=== PATIENT | female | born 2000 | race Caucasian/White ===

== ENCOUNTER 2023-04-30 17:03 | Emergency (ER) | payer BC, SELFPAY ==
[2023-04-30] VITALS (16 sets, daily range): BP systolic 100–119; BP diastolic 75–82; PULSE 96–120; RESP 12–30; TEMP 36.1–36.7; O2SAT 16–100
--- NOTE | ~2023-04-30 | CT_ITS ---
EXAMINATION: CT abdomen pelvis w con DATE: 04/30/2023 20:00 INDICATION: lower abdominal pain worse to RLQ TECHNIQUE: Computed tomography (CT) of the abdomen and pelvis was performed with 100 mL Omnipaque-350 intravenous contrast. Automated exposure control and iterative reconstruction technique were employe d. The dose-length product was 379.56 mGy-cm. COMPARISON: None. FINDINGS: Lower thorax: Unremarkable Liver: Normal. Biliary/Gallbladder: Gallbladder is normal. No bile duct dilation. Pancreas: No mass or duct dilation. Spleen: Normal. Adrenals:No mass. Kidneys: No suspicious mass, obstructing stone, or hydronephrosis. GI tract: Mild distal esophageal and gastric wall edema. No small or large bowel dilation. Normal jenifer endix. Mesentery/Peritoneum: No ascites, mass, or free air. Retroperitoneum: No mass. Pelvis: Pelvic organs are within normal limits. Soft Tissues: Soft tissues and body wall unremarkable. Bones: No acute osseous finding. IMPRESSION: Mild esophagitis/gastritis. Otherwise, no acute abdominopelvic process detected. Reviewed, dictated and finalized at location K.
--- NOTE | 2023-04-30 17:23 | ED.ABDPAIN ---
HPI - Abdominal Pain General Chief Complaint: Abdominal Pain Stated Complaint: LOWER ABD PAIN Time Seen by Provider: 04/30/23 17:16 Source: patient Mode of arrival: ambulatory Limitations: no limitations History of Present Illness HPI narrative: Patient is a 22-year-old female who denies any past medical history presents emergency department today for evaluation of pain to the lower abdomen right side. Patient states that this has been going on for few months now and occurs before her menstrual cycle starts. LMP was April 03. She states that the last few days the pain has been extremely unbearable and she cannot do anything else. she states with different movements or even laughing it can cause sharp pain. She states that she has been having very heavy and intense cycles. they are not regular. she is not on control. She states she is trying to get into a OBGYN because she has also had some hypoglycemia episodes she states. she has taken at home tests that were negative. denies trying to conceive at this time. denies fever, chills, bloody stool, abnormal vaginal discharge, concerns of STDs, pain with urination, hematuria, frequency/urgency, chest pain, shortness of breath, dizziness, or any other current symtpoms. Related Data Allergies Allergy/AdvReac Type Severity Reaction Status Date / Time No Known Allergies Allergy Verified 04/30/23 17:05 Review of Systems Review of Systems: CONSTITUTIONAL: Denies fever, chills, or sweats. EYES: Denies visual changes, redness, or discharge. ENT: Denies rhinorrhea, congestion, sore throat, or otalgia. CARDIOVASCULAR: Denies chest pain, palpitations, or edema. RESPIRATORY: Denies cough or dyspnea. GASTROINTESTINAL: +lower abdominal pain more on the right described as shooting/sharp, nausea, vomiting. denies diarrhea or constipation. GENITOURINARY: Denies dysuria or hematuria.+heavy abnormal periods and menstrual cramping. denies any other vaginal discharge. SKIN: Denies rash or itching. MUSCULOSKELETAL: generalized lower back pain bilaterally. Denies joint pain, or myalgia. NEUROLOGIC: Denies headache, numbness, or weakness. PSYCHIATRIC: Denies anxiety or depression. All systems reviewed & are unremarkable except as noted in HPI and below Exam Narrative: GENERAL: Well-appearing, well-nourished, and in no acute distress. HEAD: Normocephalic, atraumatic. EYES: PERRLA and EOMI. ENT: Nares clear, no rhinorrhea or epistaxis. Mucous membranes moist. NECK: Supple. CHEST: Clear to auscultation. No respiratory distress. HEART: Regular rate and rhythm. No murmur heard. Normal peripheral pulses. ABDOMEN: Soft, nondistended, normal active bowel sounds. TTP to RLQ with palpation. no rebound/guarding noted. no significant +McBurney's sign. EXTREMITIES: Normal range of motion. No edema. SKIN: Warm, dry, no rash. NEURO: No focal deficits. Alert and oriented x3. CN II-XII grossly intact PSYCH: Normal mood and affect. Course Vital Signs Vital signs: Vital Signs Temperature 98.1 F 04/30/23 17:06 Pulse Rate 116 H 04/30/23 17:06 Respiratory Rate 16 04/30/23 17:06 Blood Pressure 119/82 04/30/23 17:06 Pulse Oximetry 100 04/30/23 17:06 Oxygen Delivery Room Air 04/30/23 17:06 Temperature 96.9 F L 04/30/23 19:00 Pulse Rate 99 04/30/23 20:45 Respiratory Rate 16 04/30/23 20:45 Blood Pressure 100/75 04/30/23 19:30 Pulse Oximetry 16 L 04/30/23 19:00 Oxygen Delivery Room Air 04/30/23 17:06 MDM - Abdominal Pain MDM Narrative Medical decision making narrative: Patient presented to the ED with complaint of abdominal pain and extreme nausea. Vitals were within acceptable limits. Physical exam revealed TTP to RLQ. IV access was established by nursing staff. Patient was given zofran, famotidine, IV fluids, and ketorolac. CBC, BMP, lipase, LFTs, bilirubin and alk phos were obtained.Decision was made to obtain a CT-abdomen to evaluate for
[2023-04-30] MEDS: FAMOTIDINE 20 MG/2 ML VIAL IV PUSH (17:34)
[2023-04-30] MEDS: KETOROLAC 30 MG/ML VIAL (*BKC) IV PUSH (17:35)
[2023-04-30] MEDS: ONDANSETRON INJ 4 MG/2 ML VIAL IV PUSH (17:35)
[2023-04-30] MEDS: SODIUM CHLORIDE 0.9% IV 1,000 ML 999 ML IV CONT (17:37)
[2023-04-30 17:48] LABS: Basophils Percent Auto 0.5 % (0.2-1.2); Eosinophils Absolute Auto 0.2 K/mm3 (0-0.3); Hematocrit 43.4 % (37.0-47.0); Hemoglobin 14.1 g/dL (12.0-15.0); Immature Granulocyte Absolute 0.01 K/mm3 (0.00-0.031); Immature Granulocyte Percent A 0.1 % (0-0.5); Lymphocytes Absolute Auto 1.89 K/mm3 (0.9-3.2); Mean Corpuscular HGB Conc 32.5 g/dl (32-36); Mean Corpuscular Hemoglobin 28.5 pg (26-34); Mean Corpuscular Volume 87.7 fl (80-100); Mean Platelet Volume 9.4 fl (7.4-10.4); Monocytes Absolute Auto 0.6 K/mm3 (0.1-0.6); Monocytes Percent Auto 7.7 % (2.6-8.5); Neutrophils Absolute Auto 4.9 K/mm3 (1.3-6.7); Neutrophils Percent Auto 64.7 % (45.5-73.1); Platelet Count Result 365 k/mm3 (150-375); Red Blood Count 4.95 M/mm3 (4.2-5.4); Red Cell Distribution Width 12.4 % (11.5-14.5); White Blood Count 7.6 K/mm3 (4.5-10.0)
[2023-04-30 17:58] LABS: Alanine Aminotransferase 15 U/L (6-35); Albumin Level 4.4 g/dL (3.5-5.1); Alkaline Phosphatase 61 U/L (38-126); Anion Gap 8 mmol/L (8-16); Aspartate Amino Transferase 29 U/L (14-36); Bilirubin,Total 0.6 mg/dL (0.2-1.3); Blood Urea Nitrogen 10 mg/dL (7-17); Carbon Dioxide 25 mmol/L (22-30); Chloride 107 mmol/L (98-107); Estimated CRCL calculation 109 ml/min; Estimated Glomerular Filt Rate > 60; Glucose 95 mg/dL (65-110); Lipase 72 U/L (23-300); Potassium 4.2 mmol/L (3.4-5.0); Sodium 140 mmol/L (137-145)
[2023-04-30 18:20] LABS: Appearance Urine Slightly Cloudy (Clear); Bacteria Urine None Seen /hpf; Bilirubin Urine Negative (Negative); Blood Urine Negative (Negative); Color Urine Yellow (Yellow); Glucose Urine UA Negative (Negative); Ketones Urine Negative (Negative); Leukocyte Esterase Ur Negative LEU/UL (Negative); Nitrate Urine Negative (Negative); Non Pathogenic Casts 0-2; Protein Urine Negative (Negative); RBC Urine 0-2 /hpf (0-2); Specific Grav Ur <= 1.005 (1.001-1.035); Squamous Epithelial Cell Urine Few /hpf (Few); Urobilinogen Urine 0.2 mg/dL (<2.0); WBC Urine 0-5 /hpf; pH Urine 5.5 (5.0-9.0)
[2023-04-30 18:25] LABS: Add Urine Microscopic? YES
[2023-04-30 19:11] LABS: Pregnancy On Board Control Positive; Urine Pregnancy Test Negative
--- NOTE | 2023-04-30 19:28 | PC.NURSE ---
Report received from HANS Choudhury. Assumed care of patient at this time.
--- NOTE | 2023-04-30 19:56 | PC.NURSE ---
Patient in CT at this time.
== END 2023-04-30 20:59 | disposition home or self-care (01) ==
PROVIDERS: Emergency Provider Nurse Practitioner
DX: K29.70 Gastritis, unspecified, without bleeding (principal)
CPT/HCPCS: 36415; 74177; 80053; 81001; 81025; 83690; 85025; 96361; 96374; 96375; 99284; J1885; J2405; J7030; Q9967

== ENCOUNTER 2024-05-04 11:32 | Emergency (ER) | payer BC, SELFPAY ==
--- NOTE | ~2024-05-04 | US_ITS ---
EXAMINATION: US OB limited DATE: 05/04/2024 13:09 CDT INDICATION: Leaking amniotic fluid COMPARISON: None TECHNIQUE: Real-time transabdominal obstetric ultrasound. FINDINGS: 1 Last menstrual period is given as 02/01/2024 Estimated date of delivery by last menstrual period is 10/18/2024 A single intrauterine gestation is identified in a longitudinal lie, in breech presentation with the placenta in the fundus. cardiac activity is identified at a rate of 151 bpm. The traced cervical length is 3.4 cm. No funneling is appreciated. A well-circumscribed anechoic avascular structure (likely a cyst) is identified within the cervix alek suring 9 x 4 mm, not truly within the cervical canal, but immediately adjacent to it. Amniotic fluid index measures 14.75 cm, and the approximate gestational age is 16 weeks and 3 days. 5th percentile JUNIOR would be 7.9 cm 95th percentile JUNIOR would be 18.5 cm IMPRESSION: Single intrauterine gestation with an approximate gestational age of 16 weeks and 1 day, with c ardiac activity identified. Subcentimeter cervical (likely) cyst just adjacent to the cervical canal, as detailed above. The traced cervical length is 3.4 cm. Amniotic fluid index is unremarkable for dates. Reviewed, dictated and finalized at location A. IMPRESSION: Single intrauterine gestation with an approximate gestational age of 16 weeks a nd 1 day, with cardiac activity identified. Subcentimeter cervical (likely) cyst just adjacent to the cervical canal, as de tailed above. The traced cervical length is 3.4 cm. Amniotic fluid index is unremarkable for dates.
[2024-05-04 11:50] VITALS: BP 120/80; PULSE 110; RESP 18; TEMP 36.6; O2SAT 99
--- NOTE | 2024-05-04 12:07 | ED.FEMALEGU ---
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 Patient is telling me that she is 16 weeks , last routine pelvic ultrasound was April 24, patient is 1, para 0, 0, healthy otherwise. Does not smoke or drink or use drugs. She denies any pain or vaginal bleeding. Related Data Allergies Allergy/AdvReac Type Severity Reaction Status Date / Time No Known Allergies Allergy Verified 04/30/23 17:05 Review of Systems Review of Systems: All systems reviewed & are unremarkable except as noted in HPI and below Exam Narrative: General appearance: Well-developed, well-nourished Skin: Normal color Head: Normocephalic, nontraumatic Eyes: Clear conjunctiva ENT: Oropharynx normal, ears normal, nose normal Neck: Supple, nontender Chest and respiratory: Airway patent, no respiratory distress, no accessory muscle use Heart: Regular rate/rhythm Abdomen: Soft, nontender, no organomegaly, quiet bowel sounds Vascular: Normal peripheral pulses, normal capillary refill. 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, no gross motor deficit : Bimanual Exam- Adnexa, other: normal adnexae OB/external & speculum: external exam normal and other ( Slight vaginal discharge consistent with ) Course Vital Signs Vital signs: Vital Signs Temperature 36.6 C 05/04/24 11:50 Pulse Rate 110 H 05/04/24 11:50 Respiratory Rate 18 05/04/24 11:50 Blood Pressure 120/80 05/04/24 11:50 Pulse Oximetry 99 05/04/24 11:50 Oxygen Delivery Room Air 05/04/24 11:50 Temperature 36.6 C 05/04/24 11:50 Pulse Rate 85 05/04/24 12:58 Respiratory Rate 15 05/04/24 12:58 Blood Pressure 106/84 05/04/24 12:58 Pulse Oximetry 98 05/04/24 12:58 Oxygen Delivery Room Air 05/04/24 11:50 MDM - Female Genitourinary MDM Narrative Medical decision making narrative: patient is 23, 1st , workup feeling weight not significant enough to go through her underwear, asymptomatic otherwise, patient searched her symptoms and was concerned about the possibility of leaking amniotic fluid. Vital signs showed heart rate of 110 Physical examination is unremarkable Differential diagnosis nonspecific vaginal discharge, less likely leaking of amniotic fluid, anxiety like symptoms. Blood workup today showed no acute abnormalities, pelvic ultrasound showed no indication of amniotic fluid leak. Diagnosis unspecified vaginal discharge, related The pt was discharged to home.the pt,s condition upon discharge was fair,education was provided to the pt in reference to the final impression,discharge study results,treatment,prognosis and need for follow up . Differential Diagnosis Differential diagnosis: Likely other ( as above) Medical Records Attestation: I reviewed the patient's medical records. Lab Data Attestation: I reviewed the patient's lab results. 05/04/24 13:23 05/04/24 13:23 Labs: Lab Results 05/04/24 Range/Units 13:23 WBC 7.6 (4.5-10.0) K/mm3 RBC 4.68 (4.2-5.4) M/mm3 Hgb 13.7 (12.0-15.0) g/dL Hct 40.0 (37.0-47.0) % MCV 85.5 (80-100) fl MCH 29.3 (26-34) pg MCHC 34.3 (32-36) g/dl RDW 13.2 (11.5-14.5) % Plt Count 351 (150-375) k/mm3 MPV 9.4 (7.4-10.4) fl Immature Gran % (Auto) 0.3 (0-0.5) % Neut % (Auto) 65.0 (45.5-73.1) % Lymph % (Auto) 23.8 (18.3-44.2) % Graves % (Auto) 7.1 (2.6-8.5) % Eos % (Auto) 3.4 (0-4.4) % Baso % (Auto) 0.4 (0.2-1.2) % Lymph # (Auto) 1.82 (0.9-3.2) K/mm3 Graves # (Auto) 0.5 (0.1-0.6) K/mm3 Eos # (Auto) 0.3 (0-0.3) K/mm3 Baso # (Auto) 0.0 (0.0-0.1) K/mm3 Abs Immat Gran (auto) 0.02 (0.00-0.031) K/mm3 Absolute Neuts (auto) 5.0 (1.3-6.7) K/mm3 Absolute Nucleated RBC 0.000 (0.0-0.012) K/mm3 Nucleated RBC % 0.0 (0.0-0.2) % Sodium 137 (137-145) mmol/L Potassium 3.5 (3.4-5.0) mmol/L Chloride 107 (98-107) mmol/L Carbon Dioxide 21 L (22-30) mmol/L Anion Gap 9 (4-12) mmol/L BUN 3 L D (7-17) mg/dL Creatinine 0.40 L (0.7-1.0) mg/dL Estim Creat Clear Calc 155 ml/min Estimated GFR > 60 (59 - ) Glucose 80 (65-110) mg/dL Calcium 8.8 (8.4-10.2) mg/dL Total Bilirubin 0.3 (0.2-1.3) mg/dL AST 26 (14-36) U/L ALT 11 (6-35) U/L Alkaline Phosphatase 61 (38-126) U/L Total Protein 7.0 (6.3-8.2) g/dL Albumin 3.9 (3.5-5.1) g/dL Imaging Data Radiologist's impression: Impressions Obstetrics Ultrasound 05/04/24 13:07 IMPRESSION: Single intrauterine gestation with an approximate gestational age of 16 weeks and 1 day, with cardiac activity identified. Subcentimeter cervical (likely) cyst just adjacent to the cervical canal, as detailed above. The traced cervical length is 3.4 cm. Amniotic fluid index is unremarkable for dates. Critical Care Time Critical Care Time Critical Care Time: No Discharge Plan Discharge Clinical Impression: Vaginal discharge Patient Disposition: Home, Self-Care Condition: Stable Instructions: Vaginal Discharge (ED) Additional Instructions: call your OBGYN for follow-up. Prescriptions: No Action ondansetron 4 mg tablet,disintegrating 4 mg PO Q6H PRN (Reason: nausea and vomiting) Qty: 20 0RF famotidine [Pepcid] 20 mg tablet 20 mg PO BID Qty: 30 0RF sucralfate [Carafate] 1 gram tablet 1 g PO Q6H Qty: 30 0RF Rx Instructions: take on empty stomach 1 hour before or 2 hours after meals Follow-up/Referrals: PHYSICIAN,[facility] [Primary Care Provider] -
[2024-05-04 12:58] VITALS: BP 106/84; PULSE 85; RESP 15; O2SAT 98
[2024-05-04 13:28] LABS: Basophils Percent Auto 0.4 % (0.2-1.2); Eosinophils Absolute Auto 0.3 K/mm3 (0-0.3); Eosinophils Percent Auto 3.4 % (0-4.4); Hemoglobin 13.7 g/dL (12.0-15.0); Immature Granulocyte Absolute 0.02 K/mm3 (0.00-0.031); Immature Granulocyte Percent A 0.3 % (0-0.5); Lymphocytes Absolute Auto 1.82 K/mm3 (0.9-3.2); Lymphocytes Percent Auto 23.8 % (18.3-44.2); Mean Corpuscular HGB Conc 34.3 g/dl (32-36); Mean Corpuscular Hemoglobin 29.3 pg (26-34); Mean Corpuscular Volume 85.5 fl (80-100); Mean Platelet Volume 9.4 fl (7.4-10.4); Monocytes Absolute Auto 0.5 K/mm3 (0.1-0.6); Monocytes Percent Auto 7.1 % (2.6-8.5); Platelet Count Result 351 k/mm3 (150-375); Red Blood Count 4.68 M/mm3 (4.2-5.4); Red Cell Distribution Width 13.2 % (11.5-14.5); White Blood Count 7.6 K/mm3 (4.5-10.0)
[2024-05-04] MEDS: SODIUM CHLORIDE 0.9% IV 1,000 ML 999 ML IV CONT (13:37)
[2024-05-04 13:40] LABS: Alanine Aminotransferase 11 U/L (6-35); Albumin Level 3.9 g/dL (3.5-5.1); Alkaline Phosphatase 61 U/L (38-126); Anion Gap 9 mmol/L (4-12); Aspartate Amino Transferase 26 U/L (14-36); Bilirubin,Total 0.3 mg/dL (0.2-1.3); Blood Urea Nitrogen 3 mg/dL (7-17); Calcium 8.8 mg/dL (8.4-10.2); Carbon Dioxide 21 mmol/L (22-30); Chloride 107 mmol/L (98-107); Estimated CRCL calculation 155 ml/min; Estimated Glomerular Filt Rate > 60; Glucose 80 mg/dL (65-110); Potassium 3.5 mmol/L (3.4-5.0); Sodium 137 mmol/L (137-145)
--- NOTE | 2024-05-25 07:29 | PC.NURSE ---
LATE ENTRY This note is being entered to document information to the patient's record. The following information was omitted on [05/25], by [Maddie MAXWELL]. NS stopped at 1437 on 05/04/24
== END 2024-05-04 14:19 | disposition home or self-care (01) ==
PROVIDERS: Emergency Provider Emergency Medicine
DX: O99.891 Other specified diseases and conditions complicating pregnancy (principal); N89.8 Other specified noninflammatory disorders of vagina; Z3A.16 16 weeks gestation of pregnancy; R93.89 Abnormal findings on diagnostic imaging of other specified body structures
CPT/HCPCS: 36415; 76815; 80053; 85025; 85461; 86850; 86900; 86901; 96360; 99284; J7030